=== PATIENT | male | born 1945 | race Caucasian/White ===

== ENCOUNTER 2017-10-07 09:27 | Emergency (ER) | payer OTHER, MEDICARE, MEDICAID ==
[2017-10-07 10:10] LABS: BASOPHILS 0.2 % (0-2); EOSINOPHILS 0.5 % (0-7); HEMATOCRIT 43.4 % (42.0-54.0); HEMOGLOBIN 14.7 g/dL (13.5-17.5); IMMATURE GRANULOCYTES 0.2 % (0-5); LYMPHOCYTES 17.2 % (15-50); MCH 30.6 pg (26.0-34.0); MCHC 33.9 g/dL (31.0-37.0); MCV 90.4 fL (80.0-100.0); MEAN PLATELET VOLUME 9.9 fL (7.4-10.4); MONOCYTES 7.2 % (2-11); NEUTROPHILS 74.7 % (40-80); PLATELET COUNT 181 10x3/uL (130-400); RDW 15.5 % (11.5-14.5); WBC 9.9 10x3/uL (4.8-10.8)
[2017-10-07 10:22] LABS: INR 1.1 (0.85-1.17); PROTIME 13.8 SECONDS (11.6-15.0)
[2017-10-07 10:36] LABS: APPEARANCE CLOUDY (CLEAR); BACTERIA FEW /hpf (NONE SEEN); BILIRUBIN NEGATIVE (NEGATIVE); COLOR RED BROWN (YELLOW); EPITHELIAL CELLS OCC /hpf (0-5); GLUCOSE NEGATIVE (NEGATIVE); KETONE NEGATIVE (NEGATIVE); MUCUS <1+ /lpf (NONE SEEN); NITRITE NEGATIVE (NEGATIVE); PROTEIN 2+ mg/dL (NEGATIVE); RED CELLS - URINE >50 /hpf (0-5); SPECIFIC GRAVITY 1.015 (1.005-1.020); UROBILINOGEN NORMAL (NORMAL)
[2017-10-07 10:46] LABS: ALBUMIN 3.7 g/dL (3.4-5.0); ALKALINE PHOSPHATASE 77 U/L (46-116); ALT (SGPT) 19 U/L (10-68); BILIRUBIN - TOTAL 0.76 mg/dL (0.2-1.3); CALC OSMOLALITY 278 mosm/kg (275-300); CALCIUM 9.2 mg/dL (8.5-10.1); CARBON DIOXIDE 25.5 mmol/L (21.0-32.0); CHLORIDE - SERUM 102 mmol/L (98-107); CREATININE - SERUM 1.5 mg/dL (0.6-1.3); GLUCOSE 99 mg/dL (74-106); POTASSIUM - SERUM 4.6 mmol/L (3.5-5.1); PROTEIN - SERUM 8.3 g/dL (6.4-8.2); SODIUM 138 mmol/L (136-145); UREA NITROGEN 20 mg/dL (7-18); eGFR NON AFRICAN AMERICAN 49 mL/min (90-120)
[2017-10-07 11:09] LABS: CREATINE KINASE 258 UL (21-232); LIPASE 325 U/L (73-393); PRO BNP 620 pg/mL (0-125)
[2017-10-07 11:12] LABS: CKMB 2.7 U/L (0.0-3.6); TROPONIN-I < 0.017 ng/mL (0.000-0.060)
== END 2017-10-07 13:38 | disposition home or self-care (01) ==
LOC: EDBD 09:27 → D.ER 09:27
PROVIDERS: Family Medicine
DX: S16.1XXA Strain of muscle, fascia and tendon at neck level, initial encounter (principal); V43.52XA Car driver injured in collision with other type car in traffic accident, initial encounter; Y93.89 Activity, other specified; Y92.410 Unspecified street and highway as the place of occurrence of the external cause; R31.9 Hematuria, unspecified

== ENCOUNTER 2018-09-29 13:00 | Emergency (ER) | payer OTHER, MEDICAID ==
[~2018-09-29] VITALS: Ht 185.4 cm; Wt 86.4 kg
[2018-09-29 13:06] VITALS: Ht 185.4 cm; Wt 86.4 kg
[2018-09-29] MEDS ORDERED: PLAVIX75 MG PO (13:08)
[2018-09-29] MEDS ORDERED: SPRYCEL50 MG PO (13:08)
[2018-09-29 13:43] LABS: BASOPHILS 0.3 % (0-2); HEMATOCRIT 41.8 % (42.0-54.0); HEMOGLOBIN 13.6 g/dL (13.5-17.5); IMMATURE GRANULOCYTES 0.1 % (0-5); LYMPHOCYTES 20.4 % (15-50); MCH 26.4 pg (26.0-34.0); MCHC 32.5 g/dL (31.0-37.0); MCV 81.2 fL (80.0-100.0); MEAN PLATELET VOLUME 10.3 fL (7.4-10.4); MONOCYTES 8.7 % (2-11); NEUTROPHILS 67.5 % (40-80); PLATELET COUNT 148 10x3/uL (130-400); RBC 5.15 10x6/uL (4.20-6.10); WBC 6.8 10x3/uL (4.8-10.8)
[2018-09-29 13:54] LABS: INR 1.22 (0.85-1.17); PROTIME 14.9 SECONDS (11.6-15.0)
[2018-09-29 13:58] LABS: ALBUMIN 3.5 g/dL (3.4-5.0); ALKALINE PHOSPHATASE 63 U/L (46-116); ALT (SGPT) 24 U/L (10-68); BILIRUBIN - TOTAL 0.85 mg/dL (0.2-1.3); CALC OSMOLALITY 270 mosm/kg (275-300); CALCIUM 8.6 mg/dL (8.5-10.1); CARBON DIOXIDE 26.4 mmol/L (21.0-32.0); CHLORIDE - SERUM 103 mmol/L (98-107); CREATININE - SERUM 1.2 mg/dL (0.6-1.3); GLUCOSE 93 mg/dL (74-106); POTASSIUM - SERUM 3.8 mmol/L (3.5-5.1); PROTEIN - SERUM 7.5 g/dL (6.4-8.2); SODIUM 135 mmol/L (136-145); UREA NITROGEN 15 mg/dL (7-18); eGFR NON AFRICAN AMERICAN 63 mL/min (90-120)
[2018-09-29 14:09] LABS: CREATINE KINASE 188 UL (21-232); MAGNESIUM - SERUM 1.7 mg/dL (1.8-2.4); THYROID STIMULATING HORMONE 2.14 uIU/mL (0.36-3.74); TROPONIN-I 0.032 ng/mL (0.000-0.060)
[2018-09-29] MEDS ORDERED: FLOMAX0.4 MG PO (14:52)
[2018-09-29] MEDS ORDERED: COREG 3.1253.125 MG PO (14:52)
[2018-09-29] MEDS ORDERED: LISINOPRIL5 MG PO (14:52)
[2018-09-29] MEDS ORDERED: VIAGRA100 MG PO (14:53)
[2018-09-29] MEDS ORDERED: TESTOSTERONE CREAM (14:54)
--- NOTE | 2018-09-29 18:31 | MORECARE ---
CASE MANAGEMENT DISCHARGE SUMMARY PATIENT: JOSE RICARDO UNIT: [id number] ADM DATE: AGE: 73 : 43 SEX: M ROOM/BED: AUTHOR: FLORIN BAEZA PHYSICIAN: REFERRING PHYSICIAN: SENIA RUANO MD DATE OF SERVICE: 09/29/18 Discharge Plan Patient Name: JOSE RICARDO Facility: [facility]:[place] : 1945 Planned Disposition: Anticipated Discharge Date: Discharge Date: Expected LOS: 0 Initial Reviewer: [email or web address] Initial Review Date: 09/29/2018 Generated: 09/29/18 7:30 pm Comments DCP- Discharge Planning Updated by [email or web address]: Roseanna Parry on 09/29/18 5:[address] Per MD request, [facility] and transfer to their facility. CM provided required information and ER MD connected to ER MD. Roseanna Parry RN, CM Patient Name: JOSE RICARDO Page [phone] at 1831 All edits/amendments must be made on the electronic document DICTATION DATE: 09/29/181829 AUTOMOTIVE SERVICE ADVISOR: JORGITO 09/29/181829 RPT#: [id number] DC DATE: STATUS: REG ER [facility] [address] [place] [address] END OF REPORT
[2018-09-29 18:38] VITALS: BP 174/87
== END 2018-09-29 18:41 | disposition other institution (70) ==
LOC: D.ER 13:00
PROVIDERS: Family Medicine
DX: G81.91 Hemiplegia, unspecified affecting right dominant side (principal)

== ENCOUNTER 2018-10-15 14:04 | Observation (INO) | payer OTHER, MEDICAID ==
[~2018-10-15 14:04] MED LIST: COREG 3.1253.125 MG PO; FLOMAX0.4 MG PO; LISINOPRIL5 MG PO; PLAVIX75 MG PO; SPRYCEL50 MG PO; TESTOSTERONE CREAM; VIAGRA100 MG PO
[2018-10-15 14:43] LABS: BASOPHILS 0.3 % (0-2); EOSINOPHILS 3.5 % (0-7); HEMATOCRIT 48.1 % (42.0-54.0); HEMOGLOBIN 15.9 g/dL (13.5-17.5); LYMPHOCYTES 24.9 % (15-50); MCH 27.2 pg (26.0-34.0); MCHC 33.1 g/dL (31.0-37.0); MCV 82.2 fL (80.0-100.0); MEAN PLATELET VOLUME 10.3 fL (7.4-10.4); MONOCYTES 7.2 % (2-11); NEUTROPHILS 64.1 % (40-80); PLATELET COUNT 138 10x3/uL (130-400); RBC 5.85 10x6/uL (4.20-6.10); RDW 19.1 % (11.5-14.5); WBC 6.6 10x3/uL (4.8-10.8)
[2018-10-15 15:09] LABS: ALBUMIN 3.7 g/dL (3.4-5.0); ANION GAP 11.8 mmol/L (8-16); BILIRUBIN - TOTAL 0.88 mg/dL (0.2-1.3); CALCIUM 9.1 mg/dL (8.5-10.1); CARBON DIOXIDE 28.5 mmol/L (21.0-32.0); CREATININE - SERUM 1.5 mg/dL (0.6-1.3); POTASSIUM - SERUM 4.3 mmol/L (3.5-5.1); PROTEIN - SERUM 7.9 g/dL (6.4-8.2)
--- NOTE | 2018-10-15 16:02 | NUR ---
PT AMBULATED WITH CANE TO BATHROOM WITH TECH A STAND BY ASSIST
--- NOTE | 2018-10-15 16:30 | NUR ---
ADMITTED TO RM ALERT AND ORIENTEDX4 WITH GENERALZED WEAKNESS TO BLE. DENIES ANY PAIN OR DISCOMFORT AT THIS TIME. ORIENTED TO ROOM AND CALL LIGHT. ENCOURAGED TO USE CALL LIGHT FOR ASSSIT.
[2018-10-15 16:31] LABS: APPEARANCE CLEAR (CLEAR); BILIRUBIN NEGATIVE (NEGATIVE); COLOR YELLOW (YELLOW); GLUCOSE NEGATIVE (NEGATIVE); KETONE NEGATIVE (NEGATIVE); NITRITE NEGATIVE (NEGATIVE); PROTEIN 1+ mg/dL (NEGATIVE); SPECIFIC GRAVITY 1.015 (1.005-1.020); UROBILINOGEN NORMAL (NORMAL)
--- NOTE | 2018-10-15 16:36 | NUR ---
PT REFUSED IV. THIS NURSE INFORMED DR VARGAS WHO STATED PT COULD BE TRANSFERRED TO HIS ROOM ON THE FLOOR WITHOUT AN IV HE HAD NO MEDS ORDERED THAT REQUIRE AN IV AND HE IS BEING EVALUATED FOR REHAB AND THEN TRANSFERRED TO
[2018-10-15] MEDS ORDERED: BAYER CHEWABLE81 MG PO (16:55)
[2018-10-15 17:46] VITALS: BP 180/82; BMI 24.4
[2018-10-15 20:00] VITALS: BP 145/75
[2018-10-16] VITALS: BP 144/71
[2018-10-16 03:00] VITALS: BP 140/69
[2018-10-16 06:54] LABS: BASOPHILS 0.3 % (0-2); EOSINOPHILS 4.4 % (0-7); HEMATOCRIT 46.3 % (42.0-54.0); HEMOGLOBIN 15.2 g/dL (13.5-17.5); IMMATURE GRANULOCYTES 0.2 % (0-5); LYMPHOCYTES 21.9 % (15-50); MCHC 32.8 g/dL (31.0-37.0); MCV 82.4 fL (80.0-100.0); MEAN PLATELET VOLUME 10.7 fL (7.4-10.4); MONOCYTES 10.1 % (2-11); NEUTROPHILS 63.1 % (40-80); PLATELET COUNT 128 10x3/uL (130-400); RBC 5.62 10x6/uL (4.20-6.10); RDW 19.4 % (11.5-14.5); WBC 6.1 10x3/uL (4.8-10.8)
[2018-10-16 07:09] LABS: ANION GAP 9.8 mmol/L (8-16); CALCIUM 8.8 mg/dL (8.5-10.1); CARBON DIOXIDE 28.2 mmol/L (21.0-32.0); CREATININE - SERUM 1.5 mg/dL (0.6-1.3)
[2018-10-16 09:04] VITALS: BP 151/73
[2018-10-16 10:46] VITALS: BMI 24.4
--- NOTE | 2018-10-16 12:45 | NUR ---
Rehab Note- Acute Inpatient Rehab prescreen order received. The patient has an appropriate acute inpatient rehab diagnosis with recent CVA, however he has [employer] Insurance and will require a PreAuth prior to an inpatient acute rehab stay. Has a pending OT & PT Evals that will be needed for PreAuth. Will follow at this time & begin the PreAuth process. Thank you for this referral! Susana Izaguirre RN Clinical Liaison, [facility] Rehab
[2018-10-16 13:22] VITALS: BP 133/79
--- NOTE | 2018-10-16 15:33 | NUR ---
PT RESTING IN BED. NO SIGNS OF DISTRESS. NO IV REFUSED. HAS PLANTER WORTS ON BOTTOM OF THE FEET. DENIES ANY FUTHER NEED AT THIS TIME. NO FAMILY AT BEDSIDE. CALL LIGHT IN REACH. BED LOW POSITION.
--- NOTE | 2018-10-16 15:38 | NUR ---
I have reviewed this patient and I concur with the Shift Assessment completed by the Licensed Practical Nurse today this shift.
[2018-10-16 17:13] VITALS: BP 141/51
--- NOTE | 2018-10-16 19:15 | NUR ---
RECEIVED CARE FROM DAY NURSE. LYING IN BED. REPORTS NO NEEDS AT THIS TIME. CALL LIGHT AT SIDE. NO IV.
[2018-10-16 20:00] VITALS: BP 195/91
[2018-10-17 03:00] VITALS: BP 154/64
--- NOTE | 2018-10-17 03:26 | NUR ---
I have reviewed this patient and I concur with the Shift Assessment completed by the Licensed Practical Nurse today this shift.
--- NOTE | 2018-10-17 06:25 | NUR ---
PER LAB UNABLE TO GET ENOUGH BLOOD TO FILL ALL TUBES. PT REFUSED TO BE STUCK AGAIN.
[2018-10-17 08:14] VITALS: BP 178/87
--- NOTE | 2018-10-17 08:45 | NUR ---
ALERT AND ORIENTED X 3. LUNGS CLEAR BILATERALLY IN ALL SMALL. HEART SOUNDS S1 AND S2 HEARD IN ALL SMALL. BOWEL SOUNDS ACTIVE X 4. SKIN INTACT WITHOUT REDNESS. STATES GOING TO REHAB TODAY. NO ORDERS AT THIS TIME. WILL CONTINUE TO MONITOR. CALL SANCHEZ AND PERSONAL ITEMS IN REACH. PATIENT SITTING IN CHAIR AT BEDSIDE EATING BREAKFAST.
--- NOTE | 2018-10-17 10:28 | NUR ---
SITTING IN CHAIR AT BEDSIDE. DENIES PAIN. DENIES NEEDS. WILL CONTINUE TO MONITOR.
[2018-10-17 11:20] LABS: BASOPHILS 0.4 % (0-2); EOSINOPHILS 3.8 % (0-7); HEMATOCRIT 45.3 % (42.0-54.0); HEMOGLOBIN 14.8 g/dL (13.5-17.5); IMMATURE GRANULOCYTES 0.3 % (0-5); LYMPHOCYTES 22.3 % (15-50); MCH 27.1 pg (26.0-34.0); MCHC 32.7 g/dL (31.0-37.0); MEAN PLATELET VOLUME 10.2 fL (7.4-10.4); MONOCYTES 8.2 % (2-11); PLATELET COUNT 128 10x3/uL (130-400); RBC 5.46 10x6/uL (4.20-6.10); RDW 19.2 % (11.5-14.5); WBC 6.8 10x3/uL (4.8-10.8)
[2018-10-17 11:30] LABS: ALBUMIN 3.3 g/dL (3.4-5.0); ANION GAP 12.2 mmol/L (8-16); BILIRUBIN - TOTAL 0.62 mg/dL (0.2-1.3); CALCIUM 8.7 mg/dL (8.5-10.1); CARBON DIOXIDE 28.9 mmol/L (21.0-32.0); CREATININE - SERUM 1.5 mg/dL (0.6-1.3); POTASSIUM - SERUM 4.1 mmol/L (3.5-5.1); PROTEIN - SERUM 7.2 g/dL (6.4-8.2)
[2018-10-17 12:14] VITALS: BP 144/72
--- NOTE | 2018-10-17 13:17 | NUR ---
RESTING IN BED. DENIES NEEDS. WILL CONTINUE TO MONITOR.
--- NOTE | 2018-10-17 13:19 | MORECARE ---
CASE MANAGEMENT DISCHARGE SUMMARY PATIENT: JOSE RICARDO UNIT: [id number] ADM DATE: 10/15/18 AGE: 73 : 43 SEX: M ROOM/BED: D.2214 AUTHOR: FLORIN BAEZA PHYSICIAN: REFERRING PHYSICIAN: SERGIO ANGULO MD DATE OF SERVICE: 10/17/18 Discharge Plan Patient Name: JOSE RICARDO Facility: [facility]:[place] : 1945 Planned Disposition: Correction Facility Anticipated Discharge Date: Discharge Date: Expected LOS: Initial Reviewer: [email or web address] Initial Review Date: 10/15/2018 Generated: 10/17/18 2:19 pm Patient Name: JOSE RICARDO Page [phone] at 1319 All edits/amendments must be made on the electronic document DICTATION DATE: 10/17/18 1319 CORPORATE MEETING PLANNER: JORGITO 10/17/18 1319 RPT#: [id number] MD DATE: STATUS: ADM IN [facility] [address] [place] [address] END OF REPORT
--- NOTE | 2018-10-17 13:26 | MORECARE ---
CASE MANAGEMENT DISCHARGE SUMMARY PATIENT: JOSE RICARDO UNIT: [id number] ADM DATE: 10/15/18 AGE: 73 : 43 SEX: M ROOM/BED: D.2214 AUTHOR: FLORIN BAEZA PHYSICIAN: REFERRING PHYSICIAN: SERGIO ANGULO MD DATE OF SERVICE: 10/17/18 Discharge Plan Patient Name: JOSE RICARDO [facility] : 1945 Planned Disposition: Residential Facility Anticipated Discharge Date: Discharge Date: Expected LOS: Initial Reviewer: [email or web address] Initial Review Date: 10/15/2018 Generated: 10/17/18 2:26 pm Comments DCP- Discharge Planning Updated by [email or web address]: Karla Garcia on 10/17/18 12:[address] CM referral received regarding acute rehab services at [facility]. Orders obtained for physical therapy and occupational therapy consults. Rehab prescreen ordered and appears to be appropriate. Awaiting completion of evaluations. PT eval done. OT eval pending. Rehab initial prescreen initiated. Patient's insurer requires an insurance preauthorization. When eval are completed request will be submitted. Last DP export: 10/17/18 12:19 pm Patient Name: JOSE RICARDO Page [phone] at 1326 All edits/amendments must be made on the electronic document DICTATION DATE: 10/17/18 1326 NETWORK SYSTEMS OPERATOR: JORGITO 10/17/18 1326 RPT#: [id number] DC DATE: STATUS: ADM IN [facility] [address] [place] [address] END OF REPORT
[2018-10-17 13:52] VITALS: BMI 24.4
[2018-10-17 16:58] VITALS: BP 148/70
--- NOTE | 2018-10-17 18:28 | NUR ---
RESTING IN BED. DENIES PAIN. DENIES NEEDS. BED LOW. CALL SANCHEZ AND PERSONAL ITEMS IN REACH.
[2018-10-17 20:16] VITALS: BP 170/86
[2018-10-18 01:03] VITALS: BP 159/87
--- NOTE | 2018-10-18 03:30 | NUR ---
PT COMPLAINED ABOUT LABS BEING DRAWN EVERY MORNING. STATES HE WILL NOT ALLOW ANYMORE LABS TO BE DRAWN "JUST FOR ROUTINE PURPOSES." PT COMPLAINED SEVERAL TIMES THAT HE SHOULD HAVE BEEN TAKEN TO REHAB THURSDAY.
[2018-10-18 03:49] LABS: BASOPHILS 0.4 % (0-2); EOSINOPHILS 4.2 % (0-7); HEMATOCRIT 45.4 % (42.0-54.0); HEMOGLOBIN 14.9 g/dL (13.5-17.5); IMMATURE GRANULOCYTES 0.1 % (0-5); LYMPHOCYTES 27.2 % (15-50); MCH 26.9 pg (26.0-34.0); MCHC 32.8 g/dL (31.0-37.0); MCV 82.1 fL (80.0-100.0); MEAN PLATELET VOLUME 10.5 fL (7.4-10.4); MONOCYTES 8.6 % (2-11); NEUTROPHILS 59.5 % (40-80); PLATELET COUNT 135 10x3/uL (130-400); RBC 5.53 10x6/uL (4.20-6.10); RDW 19.1 % (11.5-14.5); WBC 7.1 10x3/uL (4.8-10.8)
[2018-10-18 04:02] LABS: ALBUMIN 3.4 g/dL (3.4-5.0); ANION GAP 11.6 mmol/L (8-16); BILIRUBIN - TOTAL 0.59 mg/dL (0.2-1.3); CALCIUM 8.8 mg/dL (8.5-10.1); CARBON DIOXIDE 28.5 mmol/L (21.0-32.0); CREATININE - SERUM 1.4 mg/dL (0.6-1.3); POTASSIUM - SERUM 4.1 mmol/L (3.5-5.1); PROTEIN - SERUM 7.3 g/dL (6.4-8.2)
[2018-10-18 05:44] VITALS: BP 167/81
--- NOTE | 2018-10-18 08:15 | NUR ---
AWAKE AND ALERT. ORIENTED X3. SITTING UP IN CHIAR AT BEDSIDE. LUNGS ARE CLEAR BILATERALLY, NO COUGH NOTED. SKIN IS INTACT WITHOUT REDNESS. SLIGHT WEAKNESS NOTED TO RIGHT SIDE. DENIES NEEDS. NO IV ACCESS AT THIS TIME.
[2018-10-18 09:49] VITALS: BP 157/73
--- NOTE | 2018-10-18 10:00 | NUR ---
SITTING UP IN CHIAR AT BEDSIDE. DENIES NEEDS. NO C/O
[2018-10-18 13:35] VITALS: BP 178/94
--- NOTE | 2018-10-18 14:40 | NUR ---
Rehab Note- Initiated PreAuth earlier today. Ref#[id number]. Clinicals faxed into [employer] for possible determination for an inpatient acute rehab stay. Will await determination and follow at this time. Thanl you for this referral! Susana Izaguirre RN Clinical Liaison, [facility] Rehab
[2018-10-18 18:20] VITALS: BP 193/95
--- NOTE | 2018-10-18 19:40 | NUR ---
ATE ALL OF SUPPER. NO CHANGES NOTED. DENIES NEEDS.
--- NOTE | 2018-10-18 20:00 | NUR ---
ASSESSMENT PER FLOWSHEET. RT SIDE SLIGHTLY WEAKER THAN LEFT. BALANCE AND GAIT STEADY. SITTING UP IN CHAIR AT BEDSIDE. ALERT/ORIENTED X4.
[2018-10-18 21:04] VITALS: BP 194/91
--- NOTE | 2018-10-18 22:39 | NUR ---
RESTING QUIETLY IN BED DENIES NEEDS SR UP X2 CALL LIGHT WITHIN REACH.
[2018-10-19] VITALS: BP 156/82
[2018-10-19 04:30] VITALS: BP 123/76
--- NOTE | 2018-10-19 07:25 | NUR ---
UP IN ROOM. PT STATES HE IS TO DC HOME TODAY. HE IS ANGRY BECAUSE INSURANCE IS PENDING REHAB APPROVAL.MONITOR
--- NOTE | 2018-10-19 09:00 | NUR ---
DECLINES AM ASSESSMENT. PT IS READY TO LEAVE FOR HOME TODAY.
--- NOTE | 2018-10-19 10:35 | NUR ---
REFUSES LAB DRAWS
--- NOTE | 2018-10-19 11:15 | NUR ---
Rehab Note- (Late Entry) Spoke with the patient at length yesterday evening about his insurance- he believed that he had [employer], called [employer]- patient only had benefits with [employer] from 05/18/14-10/15/14 & is inellgible for benefits through them. Informed the patient of him having [employer] insurance, also gave him [employer] contact #, his policy # as he didn't realize who his "Medicare Benefits" were being "managed" by, & also his pending Ref# for his PreAuth. He was very frustrated with "the managed Medicare benefits" attempted to explain the process. Will continue to follow at this time. Did start & submitted clinicals to [facility] 10/18/18 AM with pending reference #[id number]. Will continue to await determination for possible acute inpatient rehab stay. Thank you for this referral! Susana Izaguirre RN CLinical Liaison, [facility] Rehab
--- NOTE | 2018-10-19 11:30 | NUR ---
Rehab Note- Called to f/u on pending auth approval for inpatient acute rehab. Voicemail left for Vane Marley. As I was just off the phone leaving voicemail received a phone call from Kimmie jurado/ [facility] with questions concerning the patient's acute hospital admit and acute rehab admit, visited with her & informed her of the events leading up to this patient's acute hospital admit and the need of acute inpatient rehab d/t recent CVA. Will continue to follow at this time. Thank you for the referral- auth is still pending at this time. Will continue to follow at this time. Susana Izaguirre RN Clinical Liaison, [facility] Rehab
--- NOTE | 2018-10-19 11:37 | MORECARE ---
CASE MANAGEMENT DISCHARGE SUMMARY PATIENT: JOSE RICARDO UNIT: [id number] ADM DATE: 10/16/18 AGE: 73 : 43 SEX: M ROOM/BED: D.2214 AUTHOR: FLORIN BAEZA PHYSICIAN: REFERRING PHYSICIAN: SERGIO ANGULO MD DATE OF SERVICE: 10/19/18 Discharge Plan Patient Name: JOSE RICARDO Facility: [facility]:[place] : 1945 Planned Disposition: Long Term Facility Anticipated Discharge Date: Discharge Date: Expected LOS: Initial Reviewer: [email or web address] Initial Review Date: 10/15/2018 Generated: 10/19/18 12:37 pm Comments DCP- Discharge Planning Updated by [email or web address]: Rita Kaur on 10/19/18 10:[address] LATE ENTRY: SPOKE WITH THE PATIENT MULTIPLE TIMES YESTERDAY (10/18) ON THE PROCESS ON MANAGED MEDICARE AND HOW HE HAS TO BE APPROVED. HE DID NOT UNDERSTAND WHY IT WAS TAKING SO LONG. I EXPLAINED AGAIN ABOUT WHAT THE PROCESS IS HE WAS NOT HAPPY. JUAN F WITH INPATIENT REHAB ALSO EXPLAINED TO HIM MULTIPLE TIMES. AT THIS TIME WE ARE STILL WAITING ON [facility] FOR INPATIENT REHAB DCP- Discharge Planning Updated by [email or web address]: Karla Garcia on 10/17/18 12:[address] CM referral received regarding acute rehab services at [facility]. Orders obtained for physical therapy and occupational therapy consults. Rehab prescreen ordered and appears to be appropriate. Awaiting completion of evaluations. PT eval done. OT eval pending. Rehab initial prescreen initiated. Patient's insurer requires an insurance preauthorization. When eval are completed request will be submitted. Last DP export: 10/17/18 12:26 pm Patient Name: JOSE RICARDO Page [phone] at 1137 All edits/amendments must be made on the electronic document DICTATION DATE: 10/19/18 1136 DESKTOP SUPPORT SPECIALIST: JORGITO 10/19/18 1136 RPT#: [id number] DC DATE: STATUS: ADM IN [facility] [address] [place] [address] END OF REPORT
--- NOTE | 2018-10-19 12:12 | MORECARE ---
CASE MANAGEMENT DISCHARGE SUMMARY PATIENT: JOSE RICARDO UNIT: [id number] ADM DATE: 10/16/18 AGE: 73 : 43 SEX: M ROOM/BED: D.2214 AUTHOR: ARYAN,DOC PHYSICIAN: REFERRING PHYSICIAN: SERGIO ANGULO MD DATE OF SERVICE: 10/19/18 Discharge Plan Patient Name: JOSE RICARDO Facility: [facility]:[place] : 1945 Planned Disposition: Fdc Facility Anticipated Discharge Date: Discharge Date: Expected LOS: Initial Reviewer: [email or web address] Initial Review Date: 10/15/2018 Generated: 10/19/18 1:12 pm Comments DCP- Discharge Planning Updated by [email or web address]: Rita Kaur on 10/19/18 11:[address] PATIENT IS REQUESTING TO BE DISCHARGED TODAY. HE WILL BE DISCHARGING HOME TODAY WITH [employer] [facility], NAUN SIGNED AND PLACED IN CHART. HIS DAIRY FEED MIXING OPERATOR IS IN HIS ROOM AND WILL BE HIS SENIOR SOLUTIONS CONSULTANT HOME. CM WILL SEND REFERRAL TO [facility]. [facility] SERVED AND EXPLAINED. CM TO FOLLOW AND ASSIST WITH DC PLANNING DCP- Discharge Planning Updated by [email or web address]: Rita Kaur on 10/19/18 10:[address] LATE ENTRY: SPOKE WITH THE PATIENT MULTIPLE TIMES YESTERDAY (10/18) ON THE PROCESS ON MANAGED MEDICARE AND HOW HE HAS TO BE APPROVED. HE DID NOT UNDERSTAND WHY IT WAS TAKING SO LONG. I EXPLAINED AGAIN ABOUT WHAT THE PROCESS IS HE WAS NOT HAPPY. JUAN F WITH INPATIENT REHAB ALSO EXPLAINED TO HIM MULTIPLE TIMES. AT THIS TIME WE ARE STILL WAITING ON [facility] FOR INPATIENT REHAB DCP- Discharge Planning Updated by [email or web address]: Karla Garcia on 10/17/18 12:[address] CM referral received regarding acute rehab services at [facility]. Orders obtained for physical therapy and occupational therapy consults. Rehab prescreen ordered and appears to be appropriate. Awaiting completion of evaluations. PT eval done. OT eval pending. Rehab initial prescreen initiated. Patient's insurer requires an insurance preauthorization. When eval are completed request will be submitted. Last DP export: 10/19/18 10:37 am Patient Name: JOSE RICARDO Page [phone] at 1212 All edits/amendments must be made on the electronic document DICTATION DATE: 10/19/181211 PRODUCTION LINE SOLDERER: JORGITO 10/19/18 121 RPT#: [id number] DC DATE: STATUS: ADM IN [facility] [address] [place] [address] END OF REPORT
--- NOTE | 2018-10-19 12:23 | NUR ---
DISCHARGE INSTRUCTIONS,STATES UNDERSTANDING.CALL FOR WHEELCHAIR
--- NOTE | 2018-10-19 12:26 | NUR ---
LEFT UNIT VIA WHEELCHAIR
--- NOTE | 2018-10-19 12:28 | MORECARE ---
CASE MANAGEMENT DISCHARGE SUMMARY PATIENT: JOSE RICARDO UNIT: [id number] ADM DATE: 10/16/18 AGE: 73 : 43 SEX: M ROOM/BED: D.2214 AUTHOR: ARYAN,DOC PHYSICIAN: REFERRING PHYSICIAN: SERGIO ANGULO MD DATE OF SERVICE: 10/19/18 Discharge Plan Patient Name: JOSE RICARDO Facility: [facility]:[place] : 1945 Planned Disposition: Long Term Facility Anticipated Discharge Date: Discharge Date: 10/19/2018 Expected LOS: Initial Reviewer: [email or web address] Initial Review Date: 10/15/2018 Generated: 10/19/18 1:27 pm Comments DCP- Discharge Planning Updated by [email or web address]: Rita Kaur on 10/19/18 11:[address] PATIENT IS REQUESTING TO BE DISCHARGED TODAY. HE WILL BE DISCHARGING HOME TODAY WITH [employer] [facility], [place] SIGNED AND PLACED IN CHART. HIS PROMOTIONAL REPRESENTATIVE IS IN HIS ROOM AND WILL BE HIS CONSTRUCTION SECRETARY HOME. CM WILL SEND REFERRAL TO [facility]. [facility] SERVED AND EXPLAINED. CM TO FOLLOW AND ASSIST WITH DC PLANNING DCP- Discharge Planning Updated by [id number]: Rita Kaur on 10/19/18 10:[address] LATE ENTRY: SPOKE WITH THE PATIENT MULTIPLE TIMES YESTERDAY (10/18) ON THE PROCESS ON MANAGED MEDICARE AND HOW HE HAS TO BE APPROVED. HE DID NOT UNDERSTAND WHY IT WAS TAKING SO LONG. I EXPLAINED AGAIN ABOUT WHAT THE PROCESS IS HE WAS NOT HAPPY. JUAN F WITH INPATIENT REHAB ALSO EXPLAINED TO HIM MULTIPLE TIMES. AT THIS TIME WE ARE STILL WAITING ON [facility] FOR INPATIENT REHAB DCP- Discharge Planning Updated by [id number]: Karla Garcia on 10/17/18 12:[address] CM referral received regarding acute rehab services at [facility]. Orders obtained for physical therapy and occupational therapy consults. Rehab prescreen ordered and appears to be appropriate. Awaiting completion of evaluations. PT eval done. OT eval pending. Rehab initial prescreen initiated. Patient's insurer requires an insurance preauthorization. When eval are completed request will be submitted. External Providers [facility] Next Contact Date: Service Request Date: Service Type: Resolution: Reviewer: Comments: Coverage Notice Reviewer: [email or web address] Urbano Kaur Notice Issued Date-Time: 10/19/2018 12:10 Notice Type: IM Discharge Notice Notice Delivered To: Patient Relationship to Patient: Earth Science Technical Officer Name: Delivery Method: HAND - Hand Delivered Catalina Days: Prior Verbal Notification: Recipient Understood Notice: Yes Recipient Signature: Yes Med Rec Note Co-signed by Attending: Coverage Notice Comment: Reviewer: [email or web address] Urbano Kaur Notice Issued Date-Time: 10/19/2018 12:10 Notice Type: Patient Choice Letter Notice Delivered To: Patient Relationship to Patient: Earth Science Technical Officer Name: Delivery Method: - Catalina Days: Prior Verbal Notification: Recipient Understood Notice: Recipient Signature: Med Rec Note Co-signed by Attending: Coverage Notice Comment: Last DP export: 10/19/18 11:12 am Patient Name: JOSE RICARDO Page [phone] at 1228 All edits/amendments must be made on the electronic document DICTATION DATE: 10/19/18 1227 BUNCH MAKER HAND: JORGITO 10/19/18 1227 RPT#: [id number] DC DATE:10/19/18 STATUS: DIS IN [facility] [address] [place] [address] END OF REPORT
--- NOTE | 2018-10-19 15:37 | MORECARE ---
CASE MANAGEMENT DISCHARGE SUMMARY PATIENT: JOSE RICARDO UNIT: [id number] ADM DATE: 10/16/18 AGE: 73 : 43 SEX: M ROOM/BED: D.2214 AUTHOR: ARYAN,DOC PHYSICIAN: REFERRING PHYSICIAN: SERGIO ANGULO MD DATE OF SERVICE: 10/19/18 Discharge Plan Patient Name: JOSE RICARDO Facility: [facility]:[place] : 1945 Planned Disposition: Fpc Facility Anticipated Discharge Date: Discharge Date: 10/19/2018 Expected LOS: Initial Reviewer: [email or web address] Initial Review Date: 10/15/2018 Generated: 10/19/18 4:37 pm Comments DCP- Discharge Planning Updated by [email or web address]: Rita Kaur on 10/19/18 11:[address] PATIENT IS REQUESTING TO BE DISCHARGED TODAY. HE WILL BE DISCHARGING HOME TODAY WITH [employer] [facility], [facility] SIGNED AND PLACED IN CHART. HIS ENGINEERING LECTURER IS IN HIS ROOM AND WILL BE HIS EMAIL MARKETING ASSISTANT HOME. CM WILL SEND REFERRAL TO [facility]. [facility] SERVED AND EXPLAINED. CM TO FOLLOW AND ASSIST WITH DC PLANNING DCP- Discharge Planning Updated by [email or web address]: Rita Kaur on 10/19/18 10:[address] LATE ENTRY: SPOKE WITH THE PATIENT MULTIPLE TIMES YESTERDAY (10/18) ON THE PROCESS ON MANAGED MEDICARE AND HOW HE HAS TO BE APPROVED. HE DID NOT UNDERSTAND WHY IT WAS TAKING SO LONG. I EXPLAINED AGAIN ABOUT WHAT THE PROCESS IS HE WAS NOT HAPPY. JUAN F WITH INPATIENT REHAB ALSO EXPLAINED TO HIM MULTIPLE TIMES. AT THIS TIME WE ARE STILL WAITING ON [facility] FOR INPATIENT REHAB DCP- Discharge Planning Updated by [email or web address]: Karla Garcia on 10/17/18 12:[address] CM referral received regarding acute rehab services at [facility]. Orders obtained for physical therapy and occupational therapy consults. Rehab prescreen ordered and appears to be appropriate. Awaiting completion of evaluations. PT eval done. OT eval pending. Rehab initial prescreen initiated. Patient's insurer requires an insurance preauthorization. When eval are completed request will be submitted. Coverage Notice Reviewer: [id number] - Rita Kaur Notice Issued Date-Time: 10/19/2018 12:10 Notice Type: IM Discharge Notice Notice Delivered To: Patient Relationship to Patient: Fire Suppression Captain Name: Delivery Method: HAND - Hand Delivered Catalina Days: Prior Verbal Notification: Recipient Understood Notice: Yes Recipient Signature: Yes Med Rec Note Co-signed by Attending: Coverage Notice Comment: Reviewer: [id number] - Rita Kaur Notice Issued Date-Time: 10/19/2018 12:10 Notice Type: Patient Choice Letter Notice Delivered To: Patient Relationship to Patient: Fire Suppression Captain Name: Delivery Method: - Catalina Days: Prior Verbal Notification: Recipient Understood Notice: Recipient Signature: Med Rec Note Co-signed by Attending: Coverage Notice Comment: Last DP export: 10/19/18 11:28 am Patient Name: JOSE RICARDO Page [phone] at 1537 All edits/amendments must be made on the electronic document DICTATION DATE: 10/19/18 1536 DESKTOP SUPPORT TECHNICIAN: JORGITO 10/19/18 1536 RPT#: [id number] DC DATE:10/19/18 STATUS: DIS IN [facility] [address] [place] [address] END OF REPORT
--- NOTE | 2018-10-20 09:35 | NUR ---
Rehab Note- Received authorization for an inpatient acute rehab stay after the fact that the patient has been discharged home Auth #[id number]. Telephoned the patient and spole to him about his approval for acute inpatient rehab. The patient was very rude, stated "I do not want rehab, that I'm not happy with how my insurance nosed into my business like that and that it should have been an automatic approval for rehab with me having 2 strokes and I want that documented in the strongest way". Then asked the patient is he was safe physically at home since being discharged and having had a stroke, very rudely stated, "I don't want to talk about it or to you about it, I do not want rehab after how my insurance did and that other rehab(being [facility]) knew about me 3 weeks before this that I was supposed to come". informed the patient I would document it, his refusal for acute rehab after being approved. Susana Izaguirre RN Clinical Liaison, [facility] Rehab
== END 2018-10-19 12:26 | disposition home or self-care (01) ==
LOC: D.ER 14:04 → D.MS 16:13 → OBSVTIME 16:13 → D.MS 16:13
PROVIDERS: Family Medicine; ADMIT Emergency Medicine; ATTEND Emergency Medicine
DX: G45.9 Transient cerebral ischemic attack, unspecified (principal); R53.2 Functional quadriplegia; I69.851 Hemiplegia and hemiparesis following other cerebrovascular disease affecting right dominant side; G72.81 Critical illness myopathy; N17.9 Acute kidney failure, unspecified; L02.611 Cutaneous abscess of right foot; R53.81 Other malaise; I10 Essential (primary) hypertension; I25.10 Atherosclerotic heart disease of native coronary artery without angina pectoris; N40.0 Benign prostatic hyperplasia without lower urinary tract symptoms; E86.0 Dehydration; D69.6 Thrombocytopenia, unspecified; M21.379 Foot drop, unspecified foot; B07.0 Plantar wart; Z85.6 Personal history of leukemia; Z85.830 Personal history of malignant neoplasm of bone; Z87.891 Personal history of nicotine dependence

== ENCOUNTER → 2020-01-10 09:46 | Outpatient (CLI) | payer MEDICARE, MEDICAID ==
[~2020-01-10 09:46] MED LIST changes: +BAYER CHEWABLE81 MG PO
== END | disposition home or self-care (01) ==
LOC: D.ECHO 01-09 10:35
PROVIDERS: ATTEND Family Medicine
DX: I69.30 Unspecified sequelae of cerebral infarction (principal); I73.9 Peripheral vascular disease, unspecified; I27.21 Secondary pulmonary arterial hypertension

== ENCOUNTER 2020-01-11 15:00 | Inpatient (IN) | payer MEDICARE, MEDICAID ==
[~2020-01-11] VITALS: Ht 182.9 cm; Wt 93.0 kg
[2020-01-11] VITALS (19 sets, daily range): BP systolic 162–235; BP diastolic 86–170; BMI 27.8
--- NOTE | ~2020-01-11 | HEMODYNAMI ---
PATIENT:JOSE RICARDO MEDICAL RECORD: [id number] : 41 LOCATION:[facility] D.2302 ADMISSION DATE: 01/11/20 Generatedon:01/12/202012:31 Patient name: JOSE RICARDO Patient #: [id number] : 1945 Date of study: 01/12/2020 Page: Of Hemodynamic Procedure Report Patient Data Patient Demographics Procedure consent was obtained First Name: JOSE Gender: Male Last Name: HALEIGH : 1945 Middle Initial: Alberto TORRES Age: 74 year(s) Patient #: [id number] Race: SSN: [id number] Additional ID: [id number] Contact details Address: [facility] [address] State: [place] City: [facility] Zip code: [address] Past Medical History Allergies: No known allergies Admission Admission Data Admission Date: 01/11/2020 Admission Time: 18:37 Arrival Date: 01/12/2020 Arrival Time: 18:36 Admit Source: Emergency Insurance Payor: Private department health insurance Room #: D.2302 [facility] #: [id number] Height (in.): 71.65 BSA: 2.15 (m2) Height (cm.): 182 BMI: 28.08 (kg/m2) Weight (lbs.): 205.03 Weight (kg.): 93 Lab Results Lab Result Date: 01/12/2020 Lab Result Time: 0:00 Biochemistry Name Units Result Min Max BUN mg/dl 15 --(--*-)-- 7 18 Creatinine mg/dl 1.5 --(----)-* 0.6 1.3 eGFR ml/min 48 *-(----)-- 90 120 NONAFRICAN CBC Name Units Result Min Max Hemoglobin g/dl 10.9 *-(----)-- 13.5 17.5 Procedure Procedure Types Cath Procedure Diagnostic Procedure LHC LHC w/Coronaries w/Grafts Sedation Charges Moderate Sedation up to 15 minutes Procedure Description Procedure Date Procedure Date: 01/12/2020 Procedure Start Time: 12:15 Procedure End Time: 12:28 Procedure Staff Name Function Agapito Benson MD Performing Physician Char Figueroa RT Monitor Rani Swanson RT Scrub Huy Marley RN Nurse Procedure Data Cath Procedure Fluoroscopy Diagnostic fluoroscopy Total fluoroscopy Time: 3.5 time: 3.5 min min Diagnostic fluoroscopy Total fluoroscopy dose: dose: 1017 mGy 1017 mGy Contrast Material Contrast Material Type Amount (ml) Isovue 300 96 Entry Location Entry Primary Successful Side Size Upsize Upsize Entry Closure Succes sful Closure Location (Fr) 1 (Fr) 2 (Fr) Remarks Device Remarks Femoral Right 5 Fr Exoseal artery Estimated blood loss: 5 ml Diagnostic catheters Device Type Used For End Catheter Placement MULTIPACK JL 4.0 5Fr Left Coronary catheter Angiography MULTIPACK 3DRC 5Fr Right Coronary catheter Angiography DIAGNOSTIC AR MOD 5Fr Multi-vessel Catheter ([id number]) Angiography MULTIPACK Pigtail 5 Fr LV Angiography catheter Procedure Complications No complications Procedure Medications Medication Administration Route Dosage Oxygen etCO2 Nasal cannula 2 l/min Lidocaine 2% added to field 20 Heparin Flush Bag added to field 2 bags (1000units/500ml NS) 0.9% NaCl I.V. 100 ml/hr Versed I.V. 1 mg Fentanyl I.V. 50 mcg Versed I.V. 1 mg Fentanyl I.V. 50 mcg Hemodynamics Rest BSA: 2.15 (m2) HGB: 10.9 (g/dl) O2 Consumption: Estimated: 237.76 (ml/min) O2 Co nsumption indexed: Estimated:110.59 (ml/min/m) Heart Rate: 59 (bpm) Pressure Samples Time Site Value (mmHg) Purpose Heart Use Rate(bpm) 12:24 LV 131/18,27 Snapshot 66 Gradients Valve Time Site Site Mean SEP/DFP Peak To Heart Use 1 2 (mmHg) (sec/min) Peak Rate (mmHg) (bpm) Aortic 12:25 LV AO 56 Snapshots Pre Cath Intra NCS Post Cath Vital Signs Time Heart Resp SPO2 etCO2 NIBP (mmHg) Rhythm Pain Sedation Rate (ipm) (%) (mmHg) Status Level (bpm) 12:09:45 57 25 95 5.9 138/71(95) NSR 0 (11) 10(A) , No pain 12:14:07 60 21 94 2.2 132/67(105) NSR 0 (11) 9(A) , No pain 12:18:29 56 18 93 8.9 128/62(101) NSR 0 (11) 9(A) , No pain 12:22:47 57 17 92 1.4 131/68(95) NSR 0 (11) 9(A) , No pain 12:27:03 56 20 93 16.4 123/67(102) NSR 0 (11) 10(A) , No pain Medications Time Medication Route Dose Verified Delivered Reason Notes Eff ectiveness by by 12:09:06 Oxygen etCO2 2 Agapito Buffie used for Nasal l/min [facility] Marley safety lamp keeper cannula 12:09:14 Lidocaine 2% added 20ml Agapito Agapito for local to vial [facility] anesthetic field MD MARSH 12:09:19 Heparin Flush added 2 Agapito Agapito used for Bag to bags [facility] procedure (1000units/500ml field MD MARSH NS) 12:09:27 0.9% NaCl I.V. 100 Agapito Buffie Per ml/hr [facility] Col[facility] Marley RN physician 12:10:36 Versed I.V. 1 mg Ag[address] Buffie for [facility] Colton Marley RN sedation 12:10:43 Fentanyl I.V. 50 [address] for mcg [facility]ton Marley RN sedation 12:13:44 Versed I.V. 1 mg [address] Buffie for [facility] Colton Marley RN sedation 12:13:48 Fentanyl I.V. 50 Agap[address] for mcg [facility] Col[facility] Marley RN sedation Procedure Log Time Note 11:38:05 Diagnostic Cath Status : Urgent 11:38:45 Informed consent obtained and on chart 11:41:21 Arrival Date: 01/12/2020 6:36:00 PM 11:41:39 Admit Source: Emergency department 11:41:44 Insurance Payor : Private health insurance 11:41:53 Patient Height : 71.65 inches 11:41:56 Patient Weight : 205.03 lbs 11:42:49 Lab Result : eGFR NONAFRICAN 48 ml/min 11:42:49 Lab Result : Hemoglobin 10.9 g/dl 11:42:49 Lab Result : BUN 15 mg/dl 11:42:49 Lab Result : Creatinine 1.5 mg/dl 11:43:02 Procedure Status Urgent Heart Cath (IP). 11:43:06 Huy Marley RN sent for patient. Start room use. 11:43:07 Time tracking: Regular hours (M-F 7:00 - 5:00) 11:43:10 Plan of Care:Hemodynamics will remain stable., Cardiac rhythm will remain stable., Comfort level will be maintained., Respiratory function will remain adequate., Patient/ family verbilizes understanding of procedure., Procedure tolerated without complication., Recovers from procedure without complications.. 11:44:20 3a) 45-59 Moderately reduced kidney function. 11:58:06 Patient received from ICU to [facility] 2 Alert and oriented. Tansferred to table in Supine position. 11:58:07 Warm blankets applied, and chiquis hugger turned on for patient comfort. 11:58:07 Correct patient and procedure confirmed by team. 11:58:08 ECG and BP/O2 sat monitors applied to patient. 12:02:46 H&P Date Dictated: 01/11/2020 ER History on chart.. 12:02:47 Pre-procedure instructions explained to patient. 12:02:47 Pre-op teaching completed and patient verbalized understanding. 12:02:49 Family unavailable. 12:02:50 Patient NPO since Midnight. 12:02:55 Patient allergic to No known allergies 12:02:58 Is patient on blood thinner?No 12:03:00 Patient diabetic? No. 12:03:03 Previous problem with sedation/anesthesia? No ? 12:03:04 Snore? Yes 12:03:05 Sleep apnea? No 12:03:07 Deviated septum? No 12:03:08 Opens mouth fully? Yes 12:03:20 Sticks out tongue? Yes 12:03:23 Airway obstruction? No ? 12:03:25 Dentures? No ? 12:03:28 Pre procedure: right dorsailis pedis pulse 1+ Palpable, but thready & weak; easily obliterated 12:03:32 Patient pain scale 0/10 ?. 12:03:54 IV patent on arrival in right antecubital with 0.9% NaCl at [facility]. 12:03:58 Lab results completed and on chart. 12:04:02 Right groin area was prepped with chlora-prep and draped in sterile fashion 12:04:02 Alarms reviewed by R. N. 12:04:03 Sharps counted by scrub and verified by R.N. 12:07:50 Physician arrived 12:07:51 --------ALL STOP TIME OUT------ 12:07:51 Final Timeout: patient, procedure, and site verified with staff and physician. All members of the team are in agreement. 12:07:55 Right groin site verified by team. 12:07:58 Fire Safety Assessment: A--An alcohol-based skin anteseptic being used preoperatively., C--Open oxygen or nitrous oxide is being used., D--An ESU, laser, or fiber-optic light is being used. 12:08:05 Physical assessment completed. ASA score P 2 - A patient with mild systemic disease as per Agapito Benson MD. 12:08:09 Maximum allowable contrast dose (3.7 X eGFR X 0.75)133 ml. 12:08:14 Sedation plan: IV Moderate Sedation Medication:Versed, Fentanyl 12:08:34 Vital chart was started 12:08:35 Baseline sample Acquired. 12:08:39 Rhythm: sinus rhythm 12:09:06 Oxygen 2 l/min etCO2 Nasal cannula was administered by Huy Marley RN; used for procedure; Verbal order read back and verified. 12:09:14 Lidocaine 2% 20ml vial added to field was administered by Agapito Benson MD; for local anesthetic; Verbal order read back and verified. 12:09:19 Heparin Flush Bag (1000units/500ml NS) 2 bags added to field was administered by Agapito Benson MD; used for procedure; Verbal order read back and verified. 12:09:27 0.9% NaCl 100 ml/hr I.V. was administered by Huy Marley RN; Per physician; Verbal order read back and verified. 12:10:36 Versed 1 mg I.V. was administered by Huy Marley RN; for sedation; Verbal order read back and verified. 12:10:43 Fentanyl 50 mcg I.V. was administered by Huy Marley RN; for sedation; Verbal order read back and verified. 12:13:44 Versed 1 mg I.V. was administered by Huy Marley RN; for sedation; Verbal order read back and verified. 12:13:48 Fentanyl 50 mcg I.V. was administered by Huy Marley RN; for sedation; Verbal order read back and verified. 12:15:40 Procedure started. 12:15:40 Full Disclosure recording started 12:15:48 Local anesthetic to right femoral artery with Lidocaine 2% by Agapito Benson MD.INITIAL ACCESS ONLY 12:15:58 A 5 Fr sheath was inserted into the Right Femoral artery 12:17:40 Use device set Femoral Dx 12:17:41 ACIST Syringe (17501) opened to sterile field. 12:17:41 Bag Decanter (2002S) opened to sterile field. 12:17:41 Medline Cath Pack ([id number]) opened to sterile field. 12:17:44 ACIST Hand Control (75138) opened to sterile field. 12:17:44 ACIST Manifold (77702) opened to sterile field. 12:17:45 DIAGNOSTIC Multipack 5Fr catheter set ([id number]) opened to sterile field. 12:17:45 Tegaderm 4 x 4 (1626W) opened to sterile field. 12:17:46 SHEATH 5FR [place] (APG987) opened to sterile field. 12:17:46 EMERALD Guide Wire (686-518) opened to sterile field. 12:18:39 A MULTIPACK JL 4.0 5Fr catheter was advanced over the wire and used for Left Coronary Angiography. 12:18:50 LCA angiography performed. 12:18:53 Injector settings: Ml/sec: 3, Volume: 6, 12:18:56 Catheter removed. 12:19:03 A MULTIPACK 3DRC 5Fr catheter was advanced over the wire and used for Right Coronary Angiography. 12:19:44 SVG to Circ angiography performed. 12:20:25 Injector settings: Ml/sec: 3, Volume: 6+, 12:22:00 VILLAFUERTE to LAD angiography performed. 12:22:18 Catheter removed. 12:22:36 A DIAGNOSTIC AR MOD 5Fr Catheter ([id number]) was advanced over the wire and used for Multi-vessel Angiography. 12:23:26 SVG to RCA angiography performed. 12:24:18 Catheter removed. 12:24:25 A MULTIPACK Pigtail 5 Fr catheter was advanced over the wire and used for LV Angiography. 12:24:59 LV hemodynamics recorded. 12:25:13 EF : 55 % 12:25:22 Catheter removed. 12:25:26 EXOSEAL 5Fr (EX500) opened to sterile field. 12:25:37 Sheath removed intact; hemostasis achieved with Exoseal to the Right Femoral artery. 12::44 Procedure ended.(Physican Out) 12::06 Fluoroscopy time 03.50 minutes. 12:26:09 Fluoroscopy dose: 1017 mGy 12::09 Flurop Dose total: 1017 12:26:15 Dose Area Product 55840 mGy/cm. 12:26:19 Contrast amount:Isovue 300 96ml. 12:26:21 Maximum allowable dose exceeded? No. 12::22 Sharps counted by scrub and verified by R.N. 12::23 Insertion/operative site no bleeding no hematoma. 12::26 Post-op/insertion site Right Femoral artery dressed using a 4 x 4 and Tegaderm. 12:26:27 Post Procedure Pulses reassessed and unchanged 12:26:30 Post procedure rhythm: unchanged. 12::32 Estimated blood loss: 5 ml 12::34 Post procedure instruction explained to patient.Patient verbalizes understanding. 12:27:06 Patient needs reinforcement of post procedure teaching. 12:27:14 Procedure type changed to Cath procedure, Diagnostic procedure, LHC, C w/Coronaries w/Grafts, Sedation Charges, Moderate Sedation up to 15 minutes 12:28:00 Procedure and supply charges have been captured, reviewed, submitted and are correct. 12:28:05 Procedure Complication : No complications 12:28:07 Vital chart was stopped 12:28:10 [facility] Findings: MVD- MD will discuss options w/ pt 12:28:11 Operative report dictated upon procedure completion. 12:28:12 See physician's report for complete and final results. 12:28:14 Report given to ICU. 12:28:17 Patient transfered to ICU with Stretcher. 12:28:20 Procedure ended. 12:28:20 Full Disclosure recording stopped 12:28:31 End room use (Document Last) 12:29:24 End room use (Document Last) 12:30:20 End room use (Document Last) Device Usage Item Name Manufacture Quantity Catalog Hospital Part Current Minimal L ot# / Number Charge Number Stock Stock Serial# Code [facility] 1 58339 958699 721910 694929 20 Syringe Medical (26043) Systems Inc Bag Microtek 1 2001S 426181 19824 175038 5 Decanter Medical Inc. () Medline Medline 1 [id number] 553966 50425 846375 5 Cath Pack ([id number]) ACIST Hand Acist 1 48373 960108 153574 379398 5 Control Medical (72845) Systems Inc ACIST Acist 1 59758 600576 519219 283043 5 Manifold Medical (33216) Systems Inc DIAGNOSTIC Cardinal 1 [id number] 641827 87975 544260 30 Multipack [place] 5Fr catheter set (VK0061) Tegaderm 4 3M 1 1626W 867218 589633 834548 5 x 4 (1626W) SHEATH 5FR Terumo 1 FFS513 126872 435528 545923 5 [place] (JFD601) EMERALD Cardinal 1 232-399 781758 648654 740517 5 Guide Wire [facility] (806-668) MULTIPACK Cardinal 1 014413 5 JL 4.0 5Fr Health catheter MULTIPACK Cardinal 1 766981 5 3DRC 5Fr Health catheter DIAGNOSTIC Cardinal 1 [id number] 425397 944859 483718 15 AR MOD 5Fr Health Catheter (443523W) MULTIPACK Cardinal 1 211822 5 Pigtail 5 Health Fr catheter EXOSEAL 5Fr Cardinal 1 EX500 703072 763762 653775 10 (EX500) Health Signature Audit [place] Stage Time Signature Unsigned Intra-Procedure 01/12/2020 Char Figueroa 12:29:24 PM RT(R) Intra-Procedure 01/12/2020 Huy Marley RN 12:30:20 PM Intra-Procedure 01/12/2020 Agapito Lopez 12:31:51 PM Colton MARSH Signatures Performing Physician : Signature : Agapito Benson MD Date : Time : Monitor : Char Figueroa RT Signature : Date : Time : Nurse : Huy Marley RN Signature : Date : Time : [address] [address] [place] [address]
[2020-01-11 15:39] LABS: BASOPHILS 0.2 % (0-2); EOSINOPHILS 2.2 % (0-7); HEMATOCRIT 38.9 % (42.0-54.0); HEMOGLOBIN 12.5 g/dL (13.5-17.5); IMMATURE GRANULOCYTES 0.2 % (0-5); LYMPHOCYTES 10.4 % (15-50); MCH 30.4 pg (26.0-34.0); MCHC 32.1 g/dL (31.0-37.0); MCV 94.6 fL (80.0-100.0); MEAN PLATELET VOLUME 10.4 fL (7.4-10.4); MONOCYTES 8.1 % (2-11); NEUTROPHILS 78.9 % (40-80); RBC 4.11 10x6/uL (4.20-6.10); RDW 15.7 % (11.5-14.5); WBC 10.7 10x3/uL (4.8-10.8)
[2020-01-11 15:49] LABS: CALC OSMOLALITY 280 mosm/kg (275-300); CALCIUM 8.6 mg/dL (8.5-10.1); CARBON DIOXIDE 27.6 mmol/L (21.0-32.0); CHLORIDE - SERUM 107 mmol/L (98-107); CREATININE - SERUM 1.4 mg/dL (0.6-1.3); GLUCOSE 100 mg/dL (74-106); POTASSIUM - SERUM 3.8 mmol/L (3.5-5.1); SODIUM 141 mmol/L (136-145); UREA NITROGEN 13 mg/dL (7-18); eGFR NON AFRICAN AMERICAN 52 mL/min (90-120)
[2020-01-11 15:54] LABS: PLATELET COUNT 202 10x3/uL (130-400)
[2020-01-11 16:04] LABS: APTT 29.8 SECONDS (22.8-39.4); INR 1.12 (0.85-1.17); PROTIME 14.3 SECONDS (11.6-15.0)
[2020-01-11 16:05] LABS: ALBUMIN 3.7 g/dL (3.4-5.0); ALKALINE PHOSPHATASE 67 U/L (30-120); ALT (SGPT) 28 U/L (10-68); BILIRUBIN - TOTAL 0.79 mg/dL (0.2-1.3); CKMB 2.5 U/L (0.0-3.6); CREATINE KINASE 181 UL (21-232); MAGNESIUM - SERUM 1.8 mg/dL (1.8-2.4); PROTEIN - SERUM 7.6 g/dL (6.4-8.2); TROPONIN-I 0.048 ng/mL (0.000-0.060)
--- NOTE | 2020-01-11 16:06 | NUR ---
PT STATES HE IS "BURNING UP" AND CANT BREATHE. PT REFUSES TO GET INTO BED FROM CHAIR. CHECKED VS AND REPORTED TO PROVIDER.
--- NOTE | 2020-01-11 17:07 | NUR ---
ERP INFORMED OF ELEVATED D-DIMER 3.23
--- NOTE | 2020-01-11 18:14 | NUR ---
PT TO CT
--- NOTE | 2020-01-11 18:14 | NUR ---
TOOK PT TO RESTROOM. MED BOWEL MOVEMENT.
[2020-01-11 18:18] LABS: CREATINE KINASE 190 UL (21-232)
[2020-01-11 18:22] LABS: TROPONIN-I 0.072 ng/mL (0.000-0.060)
--- NOTE | 2020-01-11 21:10 | NUR ---
PT ARRIVED TO UNIT ACCOMPANIED BY ER STAFF. REPORT RECEIVED. PT SITTING UP IN BED, SOB, ALERT AND ORIENTED. PIV IN LEFT AC TO SL, SEE IV FLOWSHEET. ASSESSMENT COMPLETED, SEE FLOWSHEET. WILL CONTINUE TO MONITOR.
--- NOTE | 2020-01-11 22:00 | NUR ---
PT VOMITING AT THIS TIME, MEDICATION GIVEN PER ORDER.
[2020-01-12] VITALS (29 sets, daily range): BP systolic 133–186; BP diastolic 66–130; Ht 182.9 cm; Wt 93.0 kg
[2020-01-12 06:05] LABS: BASOPHILS 0.1 % (0-2); EOSINOPHILS 0 % (0-7); HEMATOCRIT 33.9 % (42.0-54.0); HEMOGLOBIN 10.9 g/dL (13.5-17.5); IMMATURE GRANULOCYTES 0.2 % (0-5); LYMPHOCYTES 13.1 % (15-50); MCH 30.2 pg (26.0-34.0); MCHC 32.2 g/dL (31.0-37.0); MCV 93.9 fL (80.0-100.0); MONOCYTES 8.2 % (2-11); NEUTROPHILS 78.4 % (40-80); PLATELET COUNT 207 10x3/uL (130-400); RBC 3.61 10x6/uL (4.20-6.10); RDW 15.5 % (11.5-14.5); WBC 8.6 10x3/uL (4.8-10.8)
[2020-01-12 06:43] LABS: CALC OSMOLALITY 282 mosm/kg (275-300); CALCIUM 8.1 mg/dL (8.5-10.1); CARBON DIOXIDE 26.2 mmol/L (21.0-32.0); CHLORIDE - SERUM 106 mmol/L (98-107); CKMB 3.6 U/L (0.0-3.6); CREATINE KINASE 182 UL (21-232); CREATININE - SERUM 1.5 mg/dL (0.6-1.3); GLUCOSE 110 mg/dL (74-106); MAGNESIUM - SERUM 1.8 mg/dL (1.8-2.4); PHOSPHOROUS 2.7 mg/dL (2.5-4.9); POTASSIUM - SERUM 3.8 mmol/L (3.5-5.1); SODIUM 141 mmol/L (136-145); UREA NITROGEN 15 mg/dL (7-18); eGFR NON AFRICAN AMERICAN 48 mL/min (90-120)
[2020-01-12 06:46] LABS: TROPONIN-I 0.114 ng/mL (0.000-0.060)
--- NOTE | 2020-01-12 07:00 | NUR ---
REPORT RECEIVED. ASSESSMENT COMPLETE PER FLOW SHEET. VSS. PT RESTING COMFORTABLY WILL CONTINUE TO MONITOR
--- NOTE | 2020-01-12 10:10 | NUR ---
KATHY SALINAS CALLED BACK REPORT GIVEN NO NEW ORDERS RECEIVED
--- NOTE | 2020-01-12 11:57 | NUR ---
PT TO DATA MODELING SPECIALIST AT THIS TIME.
[2020-01-12 16:01] LABS: LDL-HDL RATIO 2.6 ratio (1.5-3.5)
--- NOTE | 2020-01-12 19:15 | NUR ---
PT SITTING UP ON THE EDGE OF THE BED EATING A SANDWICH. HE DENIES PAIN OR NEEDS. VSS. BED IS LOW AND CALL LIGHT WITHIN REACH. DRESSING TO RIGHT GROIN IS CLEAN,DRY AND INTACT.
[2020-01-13] VITALS (7 sets, daily range): BP systolic 141–199; BP diastolic 62–89
[2020-01-13 01:48] LABS: BILIRUBIN NEGATIVE (NEGATIVE); KETONE NEGATIVE (NEGATIVE); NITRITE NEGATIVE (NEGATIVE); UROBILINOGEN NORMAL (NORMAL)
[2020-01-13 01:50] LABS: BACTERIA FEW /hpf (NONE SEEN); EPITHELIAL CELLS 0-5 /hpf (0-5); RED CELLS - URINE 0-5 /hpf (0-5); WHITE CELLS - URINE 0-5 /hpf (0-5)
[2020-01-13 06:34] LABS: HEMATOCRIT 34.5 % (42.0-54.0); HEMOGLOBIN 11.1 g/dL (13.5-17.5); MCH 30.2 pg (26.0-34.0); MCHC 32.2 g/dL (31.0-37.0); MEAN PLATELET VOLUME 10.5 fL (7.4-10.4); PLATELET COUNT 192 10x3/uL (130-400); RBC 3.67 10x6/uL (4.20-6.10); RDW 15.7 % (11.5-14.5); WBC 9.3 10x3/uL (4.8-10.8)
[2020-01-13 07:17] LABS: ANION GAP 12.5 mmol/L (8-16); CALCIUM 7.6 mg/dL (8.5-10.1); CARBON DIOXIDE 26.4 mmol/L (21.0-32.0); CREATININE - SERUM 1.4 mg/dL (0.6-1.3); MAGNESIUM - SERUM 1.8 mg/dL (1.8-2.4); PHOSPHOROUS 1.9 mg/dL (2.5-4.9); POTASSIUM - SERUM 3.9 mmol/L (3.5-5.1)
--- NOTE | 2020-01-13 08:09 | OP ---
PATIENT NAME: JOSE RICARDO MEDICAL RECORD: [id number] :41 LOCATION:D.M2 D.2125 ADMISSION DATE:01/11/20 SURGEON: WILMER MENDOZA MD DATE OF OPERATION: 01/12/2020 PROCEDURE: Left heart catheterization, selective coronary angiography, right femoral artery approach. CATHETERS: A 5-Sami sheath, 5/4 left and right Matt, 5/4 pig. The procedure was well tolerated. The patient was returned to the deal. Sheath removed. Adequate hemostasis was obtained. FINDINGS: Left ventriculography in 30-degree NEAL view shows normal LV wall motion, normal LV function, EF 50%. CORONARY ANATOMY: LEFT MAIN: Left main is free of disease. LAD: Fills for a short period of time, then seen via competitive flow from the VILLAFUERTE. CIRCUMFLEX: Circumflex fills for a short period of time, then it is totally occluded due to closed OMs. RIGHT CORONARY ARTERY: Is totally occluded in its distal third. BYPASS GRAFTS: Saphenous vein graft to right coronary, widely patent throughout its course without evidence of post-anastomotic stenosis. SAPHENOUS VEIN GRAFT: Saphenous vein graft to OM1 and OM2, widely patent throughout its course. No evidence of post-anastomotic stenosis. VILLAFUERTE to LAD is widely patent throughout its course. IMPRESSION: 1. Widely patent saphenous grafts. 2. Normal left ventricular function. TRANSINT:[id number] Voice Confirmation ID: [id number] DOCUMENT ID: [id number] WILMER MENDOZA MD at 0809 CC: [id number] DICTATION DATE: 01/12/20 1229 LOOP SEWER: 01/12/20 1356 ADM IN [facility] [address] [id number]
[2020-01-13 12:11] LABS: LYMPHOCYTES 33 % (15-50); MONOCYTES 17 % (2-11); NEUTROPHILS 50 % (40-80); PLATELET ESTIMATE NORMAL; ROULEAUX OCC
--- NOTE | 2020-01-13 16:16 | NUR ---
PT REFUSING TO WEAR TELEMETRY. TELEMETRY RETURNED. WILL CTM.
[2020-01-14] VITALS: BP 159/64
[2020-01-14 06:47] LABS: BASOPHILS 0.3 % (0-2); EOSINOPHILS 3.4 % (0-7); HEMOGLOBIN 10.7 g/dL (13.5-17.5); IMMATURE GRANULOCYTES 0.2 % (0-5); MCH 30.3 pg (26.0-34.0); MCHC 32.4 g/dL (31.0-37.0); MCV 93.5 fL (80.0-100.0); MEAN PLATELET VOLUME 10.2 fL (7.4-10.4); MONOCYTES 13.3 % (2-11); NEUTROPHILS 61.8 % (40-80); PLATELET COUNT 186 10x3/uL (130-400); RBC 3.53 10x6/uL (4.20-6.10); RDW 15.4 % (11.5-14.5)
[2020-01-14 06:57] LABS: WBC 5.9 10x3/uL (4.8-10.8)
--- NOTE | 2020-01-14 07:25 | NUR ---
WALKING ROUNDS COMPLETE, PT RESTING IN BED WITH EYES CLOSED, NO S/S OF PAIN OR NEEDS NOTED, CALL LIGHT IN REACH, BED LOW AND LOCKED, WILL MONITOR
[2020-01-14 07:32] LABS: ANION GAP 13.2 mmol/L (8-16); CALCIUM 8.1 mg/dL (8.5-10.1); CARBON DIOXIDE 25.3 mmol/L (21.0-32.0); CREATININE - SERUM 1.3 mg/dL (0.6-1.3); MAGNESIUM - SERUM 1.8 mg/dL (1.8-2.4); PHOSPHOROUS 1.9 mg/dL (2.5-4.9); POTASSIUM - SERUM 3.5 mmol/L (3.5-5.1)
--- NOTE | 2020-01-14 08:49 | NUR ---
PT TOOK AM MEDS WITHOUT DIFFICULTY, PT IS STILL SLEEPY THIS AM AND WANTS TO GO BACK TO SLEEP, NO OTHER NEEDS VOICED, WILL MONITOR
--- NOTE | 2020-01-14 09:52 | NUR ---
HELPED PT FROM BATHROOM, GAVE PT WATER, CLEANED UP SPILL IN FLOOR FROM PT DUMPING DRINK, CLEANED PT FEET AND GAVE PT NEW PAIR OF SOCKS, NO OTHER NEEDS OR PAIN VOICED, PT IS VERY QUIET TODAY, BED LOW AND LOCKED, WILL MONITOR
[2020-01-14 10:01] VITALS: BP 122/54
[2020-01-14 10:04] VITALS: BP 122/54
--- NOTE | 2020-01-14 12:58 | NUR ---
PT SITTING UP ON SIDE OF BED, PT FINISHED LUNCH, NO OTHER NEEDS VOICED, WILL MONITOR, CALL LIGHT IN REACH
--- NOTE | 2020-01-14 13:35 | NUR ---
REHAB PRESCREENING Rehab referral received and chart reviewed. This patient has [employer] as his provider which requires a pre-auth. An OT evaluation will need to be ordered and completed in order to begin auth. This patient refused therapy yesterday. He will need to participate or he will not meet acute inpatient rehab admission criteria. Thank you for this referral! Autumn English, DIETIST Rehab PD
[2020-01-14 14:07] LABS: % SATURATION 14 % (15-55); IRON 37 ug/dl (35-150); TOTAL IRON BIND CAPACITY 264 ug/dl (260-445); UNSAT IRON BIND CAPACITY 227 ug/dl (150-375)
[2020-01-14 14:53] VITALS: BP 122/54
[2020-01-14 18:06] VITALS: BP 157/71
[2020-01-14 20:00] VITALS: BP 150/68
[2020-01-15] VITALS: BP 129/69
--- NOTE | 2020-01-15 04:44 | NUR ---
PT REFUSING AM LABS TO BE DRAWN "UNTIL THE DOCTOR TALKS TO HIM". NO S/S OF DISTRESS OBSERVED. WILL CPOC.
[2020-01-15 07:00] VITALS: BP 150/66
--- NOTE | 2020-01-15 09:40 | NUR ---
PT SITTING ON SIDE OF BED. DISCUSSED PLAN FOR DAY, STATES WANTS TO GO HOME. STATES HIS CAR IS LEFT IN [address]ARKING LOT ON [address] AND WILL NEED TO GET THERE. MENTIONED MAYBE CASE MGMT HELPING HIM WITH A TAXI AND HE BECAME BELIGERANT, SAYING HE WONT GET IN A DIRTY TAXI AND THAT THERE IS A COVID OUT THERE IF I DIDN'T KNOW THIS. THEN TOLD ME TO TAKE HIS MEDICINE I WAS TRYING TO GIVE HIM AND LEAVE.
[2020-01-15] MEDS ORDERED: COREG6.25 MG PO (10:29)
[2020-01-15] MEDS ORDERED: LISINOPRIL20 MG PO (10:30)
[2020-01-15] MEDS ORDERED: NORVASC10 MG PO (10:30)
--- NOTE | 2020-01-15 10:43 | NUR ---
PT SEEN BY RITA GAVIRIA AND WILL LIKELY BE DISCHARGED HOME TODAY. GROIN DRESSING CDI, ROOM AIR OXYGEN. HAS FRIEND FOR TRANSPORTATION BACK TO CAR.
--- NOTE | 2020-01-15 12:33 | MORECARE ---
CASE MANAGEMENT DISCHARGE SUMMARY PATIENT: JOES RICARDO UNIT: [id number] ADM DATE: 01/11/20 AGE: 74 : 43 SEX: M ROOM/BED: D.9705 AUTHOR: FLORIN BAEZA PHYSICIAN: REFERRING PHYSICIAN: JUSTO CABALLERO DO DATE OF SERVICE: 01/15/20 Discharge Plan Patient Name: JOSE RICARDO [facility] [facility] 1945 Planned Disposition: Anticipated Discharge Date: Discharge Date: Expected LOS: Initial Reviewer: [email or web address] Initial Review Date: 01/11/2020 Generated: 01/15/20 1:32 pm Patient Name: JOSE RCIARDO Page [phone] at 1233 All edits/amendments must be made on the electronic document DICTATION DATE: 01/15/20 1232 JOCKEY'S AGENT: JORGITO 01/15/20 1232 RPT#: [id number] DC DATE: STATUS: ADM IN [facility] [address] [place] [address] END OF REPORT
--- NOTE | 2020-01-15 12:39 | MORECARE ---
CASE MANAGEMENT DISCHARGE SUMMARY PATIENT: JOSE RICARDO UNIT: [id number] ADM DATE: 01/11/20 AGE: 74 : 43 SEX: M ROOM/BED: D.2397 AUTHOR: FLORIN BAEZA PHYSICIAN: REFERRING PHYSICIAN: JUSTO CABALLERO DO DATE OF SERVICE: 01/15/20 Discharge Plan Patient Name: JOSE RICARDO Facility: [facility]:[place] : 1945 Planned Disposition: Anticipated Discharge Date: Discharge Date: Expected LOS: Initial Reviewer: [email or web address] Initial Review Date: 01/11/2020 Generated: 01/15/20 1:38 pm Comments DCP- Discharge Planning Updated by [email or web address]: Leonie Nichols on 01/15/20 11:[address] Patient Name: JOSE RICARDO Admission Status: ER Accout number: [id number] Admission Date: 01-11-2020 : 1945 Admission Diagnosis:CHEST PAIN, UNSPECIFIED Attending: JUSTO CABALLERO Current LOS: 4 Anticipated DC Date: Planned Disposition: Primary Insurance: [employer] CHO[employer] PPO MCR ADVANT Discharge Planning Comments: CM met with patient to complete initial dc planning assessment. CM educated patient on the CM role and verbal consent given by patient to complete assessment. CM verified patient's address, phone number, and emergency contact phone numbers. Patient lives at home an a houseboat at [facility] alone and is independent. At discharge patient plans to return home and feels this is a safe discharge. CM discussed availability of home health, rehab services, and medical equipment. Patient denied known discharge needs at this time. Transportation provider at discharge will be a family friend. Pt states he was picked up by ems on central at the [employer]. CM asked if he had a ride to his car, or if he would like CM to assist him with that. Pt states he does not want any kind of public transportation, because he will get the covid. States he will stay here in the hospital until he can get a ride. CM provided alternative means of transportation, and will continue to assist patient into finding transportation to his car. CM will continue to follow and will assist as needed with dc plans/needs. Incising Machine Operator: Leonie Nichols MSN,RN,CM Last DP export: 01/15/20 11:33 a Patient Name: JOSE RICARDO Page [phone] at 1239 All edits/amendments must be made on the electronic document DICTATION DATE: 01/15/20 1239 GREENS OR GROUNDS SUPERINTENDENT: JORGITO 01/15/20 1239 RPT#: [id number] DC DATE: STATUS: ADM IN [facility] [address] [place] [address] END OF REPORT
--- NOTE | 2020-01-16 08:03 | MORECARE ---
CASE MANAGEMENT DISCHARGE SUMMARY PATIENT: JOSE RICARDO UNIT: [id number] ADM DATE: 01/11/20 AGE: 74 : 41 SEX: M ROOM/BED: D.6712 AUTHOR: FLORIN BAEZA PHYSICIAN: REFERRING PHYSICIAN: JUSTO CABALLERO DO DATE OF SERVICE: 01/16/20 Discharge Plan Patient Name: JOSE RICARDO Facility: [facility]:[place] : 1945 Planned Disposition: Anticipated Discharge Date: Discharge Date: 01/15/2020 Expected LOS: Initial Reviewer: [email or web address] Initial Review Date: 01/11/2020 Generated: 01/16/20 9:03 am Comments DCP- Discharge Planning Updated by [email or web address]: Leonie Nichols on 01/15/20 11:[address] Patient Name: JSOE RICARDO Admission Status: ER Accout number: [id number] Admission Date: 01-11-2020 : 1945 Admission Diagnosis:CHEST PAIN, UNSPECIFIED Attending: JUSTO CABALLERO Current LOS: 4 Anticipated DC Date: Planned Disposition: Primary Insurance: [employer] Discharge Planning Comments: CM met with patient to complete initial dc planning assessment. CM educated patient on the CM role and verbal consent given by patient to complete assessment. CM verified patient's address, phone number, and emergency contact phone numbers. Patient lives at home an a houseboat at [facility] alone and is independent. At discharge patient plans to return home and feels this is a safe discharge. CM discussed availability of home health, rehab services, and medical equipment. Patient denied known discharge needs at this time. Transportation provider at discharge will be a family friend. Pt states he was picked up by em[facility] on central at the [facility]. CM asked if he had a ride to his car, or if he would like CM to assist him with that. Pt states he does not want any kind of public transportation, because he will get the covid. States he will stay here in the hospital until he can get a ride. CM provided alternative means of transportation, and will continue to assist patient into finding transportation to his car. CM will continue to follow and will assist as needed with dc plans/needs. Mental Health Nurse: Leonie Nichols MSN,RN,CM Coverage Notice Reviewer: [email or web address] Urbano Nichols Notice Issued Date-Time: 01/15/2020 10:55 Notice Type: IM Discharge Notice Notice Delivered To: Patient Relationship to Patient: [employer] Name: Delivery Method: HAND - Hand Delivered [place] Days: Prior Verbal Notification: Recipient Understood Notice: Yes Recipient Signature: Yes Med Rec Note Co-signed by Attending: Coverage Notice Comment: dc imm Reviewer: [email or web address] Urbano Nichols Notice Issued Date-Time: 01/15/2020 10:55 Notice Type: Patient Choice Letter Notice Delivered To: Patient Relationship to Patient: [employer] Name: Delivery Method: HAND - Hand Delivered Catalina Days: Prior Verbal Notification: Recipient Understood Notice: Yes Recipient Signature: Yes Med Rec Note Co-signed by Attending: Coverage Notice Comment: declination for hh Last DP export: 01/15/20 11:39 a Patient Name: JOSE RICARDO Page [id number] at 0803 All edits/amendments must be made on the electronic document DICTATION DATE: 01/16/20 0803 UNLEAVENED DOUGH MIXER: [email or web address] 01/16/20 0803 RPT#: [id number] DC DATE:01/15/20 STATUS: DIS IN [place] [id number] [place] [place] [address] END OF REPORT
== END 2020-01-15 14:34 | disposition home or self-care (01) | DRG 286 ==
LOC: D.ER 15:00 → OBSVTIME 18:36 → D.M2 18:36 → D.ICU 18:36 → D.M2 18:37 → D.ICU 18:37 → D.M2 01-12 16:33
PROVIDERS: Emergency Medicine; Family Medicine; Internal Medicine Hematology & Oncology; Internal Medicine Interventional Cardiology; ADMIT Family Medicine; ATTEND Family Medicine
PROC: B2151ZZ Fluoroscopy of Left Heart using Low Osmolar Contrast (ICD-10-PCS; 2020-01-12)
PROC: 4A023N7 Measurement of Cardiac Sampling and Pressure, Left Heart, Percutaneous Approach (ICD-10-PCS; 2020-01-12)
PROC: B2111ZZ Fluoroscopy of Multiple Coronary Arteries using Low Osmolar Contrast (ICD-10-PCS; principal; 2020-01-12 11:43)
DX: I25.110 Atherosclerotic heart disease of native coronary artery with unstable angina pectoris (principal); I50.43 Acute on chronic combined systolic (congestive) and diastolic (congestive) heart failure; N17.9 Acute kidney failure, unspecified; C92.10 Chronic myeloid leukemia, BCR/ABL-positive, not having achieved remission; I16.0 Hypertensive urgency; E78.5 Hyperlipidemia, unspecified; D64.9 Anemia, unspecified; I11.0 Hypertensive heart disease with heart failure; Z86.73 Personal history of transient ischemic attack (TIA), and cerebral infarction without residual deficits

== ENCOUNTER 2020-11-13 20:39 | Emergency (ER) | payer MEDICARE, MEDICAID ==
[~2020-11-13] VITALS: Ht 182.9 cm; Wt 72.7 kg
[~2020-11-13 20:39] MED LIST changes: +COREG6.25 MG PO; +K-DUR20 MEQ PO; +LASIX40 MG PO; +LISINOPRIL20 MG PO; +NORVASC10 MG PO
[2020-11-13 21:05] VITALS: BP 189/76; Ht 182.9 cm; Wt 72.7 kg
[2020-11-13 22:49] LABS: BASOPHILS 0.5 % (0-2); EOSINOPHILS 1.7 % (0-7); HEMATOCRIT 38.4 % (42.0-54.0); HEMOGLOBIN 12.5 g/dL (13.5-17.5); LYMPHOCYTES 22.1 % (15-50); MCH 28.6 pg (26.0-34.0); MCHC 32.5 g/dL (31.0-37.0); MCV 87.8 fL (80.0-100.0); MEAN PLATELET VOLUME 8.9 fL (7.4-10.4); MONOCYTES 11.2 % (2-11); NEUTROPHILS 64.5 % (40-80); PLATELET COUNT 237 10x3/uL (130-400); RBC 4.38 10x6/uL (4.20-6.10); RDW 17.4 % (11.5-14.5); WBC 6.1 10x3/uL (4.8-10.8)
[2020-11-13 22:52] LABS: ANION GAP 12.5 mmol/L (8-16); CALCIUM 8.5 mg/dL (8.5-10.1); CREATININE - SERUM 1.6 mg/dL (0.6-1.3); POTASSIUM - SERUM 3.5 mmol/L (3.5-5.1)
[2020-11-13 23:07] LABS: ALBUMIN 3.8 g/dL (3.4-5.0); BILIRUBIN - TOTAL 1.34 mg/dL (0.2-1.3); PROTEIN - SERUM 7.8 g/dL (6.4-8.2); THYROID STIMULATING HORMONE 3.6 uIU/mL (0.36-3.74); TROPONIN-I 0.034 ng/mL (0.000-0.060)
[2020-11-13 23:49] LABS: BILIRUBIN NEGATIVE (NEGATIVE); KETONE TRACE mg/dL (< 1+); NITRITE NEGATIVE (NEGATIVE); UROBILINOGEN NORMAL mg/dL (< 2); WHITE CELLS - URINE 3 HPF (0-1)
[2020-11-13 23:52] LABS: UDS - AMPHET NEGATIVE QUAL (NEGATIVE); UDS - BARB NEGATIVE QUAL (NEGATIVE); UDS - BENZO NEGATIVE QUAL (NEGATIVE); UDS - COCAINE NEGATIVE QUAL (NEGATIVE); UDS - OPIATE NEGATIVE QUAL (NEGATIVE); UDS - PCP NEGATIVE QUAL (NEGATIVE); UDS - THC POSITIVE QUAL (NEGATIVE)
--- NOTE | 2020-11-14 01:00 | NUR ---
SPOKE WITH PATIENT AT LENGTH. HE IS ORIENTED X3. HE HAS A CONSISTENT BUT GRANDIOSE STORY. HE APPEARS TO BE INTELLIGENT. DENIES ANY THOUGHTS OF SELF HARM OR HARM TO OTHERS. PATIENT IS HIS OWN POA AND STATES HE DOES NOT WANT TO BE ADMITED TO THE HOSPITAL.
== END 2020-11-14 00:50 | disposition left against medical advice (07) ==
LOC: D.ER 20:39
PROVIDERS: Family Medicine
DX: R41.82 Altered mental status, unspecified (principal); N28.9 Disorder of kidney and ureter, unspecified; Z86.73 Personal history of transient ischemic attack (TIA), and cerebral infarction without residual deficits; I11.0 Hypertensive heart disease with heart failure; I50.9 Heart failure, unspecified; Z79.82 Long term (current) use of aspirin; Z53.29 Procedure and treatment not carried out because of patient's decision for other reasons